=== PATIENT | male | born 1970 | race Two or more races ===

== ENCOUNTER 2020-08-23 05:57 | Emergency (ER) | payer SELFPAY ==
[2020-08-23 06:09] VITALS: BP 135/86
--- NOTE | 2020-08-23 06:44 | ER Document Report ---
Entered by RIO COMER SCRIBE 08/23/20 0612 Acting as scribe for:KEMAR WATSON MD ED ENT - General Chief Complaint: Ear Pain Stated Complaint: EAR PAIN Mode of Arrival: Ambulatory Information source: Patient Notes: This 50 year old male patient with no significant past medical history presents to the ED today with complaints of left ear pain that started x4 days ago. Patient states that he believes there was a "pimple" inside his ear and that when he scratched it, pus was excreted. He reports using Q-tips and irrigating his ear with peroxide without resolve. Denies rash. - Related Data Allergies/Adverse Reactions: No Known Allergies Allergy (Unverified 08/23/20 06:05) Past Medical History - General Information source: Patient - Social History Smoking Status: Former Smoker Smoking Education Provided: No Frequency of alcohol use: None Drug Abuse: None Family History: Reviewed & Not Pertinent, DM, Other - Asthma Patient has suicidal ideation: No Patient has homicidal ideation: No Review of Systems - Review of Systems Constitutional: No symptoms reported EENT: See HPI, Ear pain, Ear discharge Cardiovascular: No symptoms reported Respiratory: No symptoms reported Gastrointestinal: No symptoms reported Genitourinary: No symptoms reported Male Genitourinary: No symptoms reported Musculoskeletal: No symptoms reported Skin: See HPI. denies: Rash Hematologic/Lymphatic: No symptoms reported Neurological/Psychological: No symptoms reported -: Yes All other systems reviewed and negative Physical Exam - Vital signs Vitals: Temp Pulse Resp BP Pulse Ox 97.6 F 70 15 135/86 H 98 08/23/20 06:00 08/23/20 06:00 08/23/20 06:00 08/23/20 06:00 08/23/20 06:00 - General General appearance: Appears well, Alert In distress: None - HEENT Head: Normocephalic, Atraumatic Eyes: Normal Extraocular movements intact: Yes Pupils: PERRL External canal: Other - Left ear canal is swollen, mildly erythematous, and tender to palpation. No foreign body or drainage appreciated. There is a superficial burn at the entry of the ear canal. Tympanic membrane: Normal - Respiratory Respiratory status: No respiratory distress Chest status: Nontender Breath sounds: Normal Chest palpation: Normal - Cardiovascular Rhythm: Regular Heart sounds: Normal auscultation Murmur: No - Abdominal Inspection: Normal Distension: No distension Bowel sounds: Normal Tenderness: Nontender Organomegaly: No organomegaly - Back Back: Normal, Nontender - Extremities General upper extremity: Normal inspection General lower extremity: Normal inspection. No: Edema - Neurological Neuro grossly intact: Yes Orientation: AAOx4 [place] Coma Scale Eye Opening: Spontaneous [place] Coma Scale Verbal: Oriented [place] Coma Scale Motor: Obeys Commands [place] Coma Scale Total: 15 - Psychological Associated symptoms: Normal affect, Normal mood - Skin Skin Temperature: Warm Skin Moisture: Dry Skin Color: Normal Course - Re-evaluation Re-evalutation: 08/23/20 06:38 Patient resting comfortably. - Vital Signs Vital signs: Temp Pulse Resp BP Pulse Ox 97.6 F 70 15 135/86 H 98 08/23/20 06:00 08/23/20 06:00 08/23/20 06:00 08/23/20 06:00 08/23/20 06:00 Discharge - Discharge Clinical Impression: Otitis externa in other diseases classified elsewhere, left ear Condition: Stable Disposition: HOME, SELF-CARE Instructions: Otitis Externa ([facility]), Use of Ear Drops ([facility]) Additional Instructions: Otitis Externa You have otitis externa -- an infection of the outer ear canal. This can be very painful. It's sometimes called "swimmer's ear," because it often occurs after prolonged water exposure. Many things, such as earwax and dirt in the ear, can contribute to it. The usual treatment is antibiotic/antiinflammatory ear drops. Occasionally, a wick will be placed in the ear to draw in the medicine. If the infection is severe, an oral antibiotic may be prescribed. Pain medication is often needed. Avoid getting water in the ear. Outer ear infections often take longer to heal than you might expect. Some tenderness and ache in the ear may persist for about two weeks. See your physician if you fail to improve as expected. Call the doctor at once if you develop fever, increasing swelling (particularly if it makes your ear "poke out"), severe headache, stiff neck, or decreased hearing. Recommend [id number] Tylenol or ibuprofen as needed for pain. Prescriptions: Amoxicillin/Potassium Clav [Augmentin 875-125 Tablet] 1 tab PO BID #20 tab Ciprofloxacin HCl/Dexameth [Ciprodex Otic Suspension 7.5 ml Bottle] 4 drop LFT_EAR BID 7 Days #1 bottle I personally performed the services described in the documentation, reviewed and edited the documentation which was dictated to the scribe in my presence, and it accurately records my words and actions.
== END 2020-08-23 06:56 | disposition home or self-care (01) ==
LOC: ER 05:57
DX: H60.92 Unspecified otitis externa, left ear (principal); T20.012A Burn of unspecified degree of left ear [any part, except ear drum], initial encounter; X08.8XXA Exposure to other specified smoke, fire and flames, initial encounter; Z87.891 Personal history of nicotine dependence
CPT/HCPCS: 99283